=== PATIENT | male | born 2000 | race Caucasian/White ===

== ENCOUNTER 2024-09-08 22:00 | Emergency (ER) | payer SELFPAY ==
[~2024-09-08] VITALS: Ht 167.6 cm; Wt 83.9 kg
== END 2024-09-08 23:00 | disposition short-term general hospital (02) ==
LOC: ED 22:00
DX: S00.11XA Contusion of right eyelid and periocular area, initial encounter (principal); Z91.048 Other nonmedicinal substance allergy status; V86.59XA Driver of other special all-terrain or other off-road motor vehicle injured in nontraffic accident, initial encounter; Y93.I9 Activity, other involving external motion; Y92.488 Other paved roadways as the place of occurrence of the external cause; Y92.89 Other specified places as the place of occurrence of the external cause; Y99.8 Other external cause status

== ENCOUNTER → 2024-10-20 | Outpatient (CLI) | payer OTHER | END | disposition home or self-care (01) | LOC: CT 02:07 | PROVIDERS: ATTEND Physician Assistant Medical | DX: S02.19XD Other fracture of base of skull, subsequent encounter for fracture with routine healing (principal); S06.4XAD Epidural hemorrhage with loss of consciousness status unknown, subsequent encounter; S06.6X9D Traumatic subarachnoid hemorrhage with loss of consciousness of unspecified duration, subsequent encounter; R51.9 Headache, unspecified; X58.XXXD Exposure to other specified factors, subsequent encounter ==